=== PATIENT | male | born 1955 | race Caucasian/White ===

== ENCOUNTER 2022-01-04 20:16 | Emergency (ER) | payer MEDICARE, MEDICAID | END 2022-01-04 21:32 | disposition left against medical advice (07) | LOC: DL.ED 20:16 | DX: Z53.21 Procedure and treatment not carried out due to patient leaving prior to being seen by health care provider (principal) ==

== ENCOUNTER 2022-01-07 04:11 | Emergency (ER) | payer MEDICARE, MEDICAID ==
[2022-01-07] MEDS ORDERED: Lidocaine 2% Jelly 10 ML Urojet MUCMEM ONE (04:30)
[2022-01-07] MEDS ORDERED: Lidocaine 2% Jelly 10 ML Urojet ONE (04:33)
[2022-01-07] MEDS ORDERED: Sodium Chloride 0.9% 10 ML Syringe FLUSH PRN (05:39)
[2022-01-07] MEDS ORDERED: cefTRIAXone 1 GM in Sodium Chloride 0.9% 50 ML IV ONE (05:41)
[2022-01-07 06:33] LABS: ANION GAP 15.3 mEq/L (7-13); CHLORIDE,CL 100 mmol/L (98-107); SODIUM,NA 138 mmol/L (136-145)
[2022-01-07 06:39] VITALS: BP 137/85; PULSE 120
[2022-01-07 06:51] LABS: CORONAVIRUS COVID-19 NAA NEGATIVE (NEGATIVE)
[2022-01-07] MEDS ORDERED: Sodium Chloride 0.9% 500 ML IV ONE (06:56)
[2022-01-07] MEDS ORDERED: Acetaminophen 500 MG Tab PO ONE (06:56)
[2022-01-07] MEDS ORDERED: Albuterol 0.083% 2.5 MG/3 ML Neb Soln NEB ONE (07:10)
== END 2022-01-07 08:29 | disposition home or self-care (01) ==
LOC: DL.ED 04:11
DX: N39.0 Urinary tract infection, site not specified (principal); E78.00 Pure hypercholesterolemia, unspecified; I10 Essential (primary) hypertension; Z88.8 Allergy status to other drugs, medicaments and biological substances; Z79.82 Long term (current) use of aspirin; Z79.899 Other long term (current) drug therapy
CPT/HCPCS: 0240U; 36415; 51702; 71045; 80053; 81001; 83605; 83735; 83880; 84484; 85025; 85379; 85610; 87040; 87086; 87088; 87186; 93005; 94640; 96365; 99284; A9270; J0696; J3490; J7040; J7613-GY

== ENCOUNTER 2024-06-28 08:38 | Emergency (ER) | payer MEDICARE, MEDICAID ==
[2024-06-28 08:57] VITALS: BP 161/89; PULSE 124
[2024-06-28] MEDS: Iopamidol 612 MG/ML 100 ML Bottle IVPUSH ONE (09:06)
[2024-06-28] MEDS: Acetaminophen/HYDROcodone 325-10 MG Tab PO ONE (09:12)
[2024-06-28] MEDS: Sodium Chloride 0.9% 1,000 ML IV ONE (09:13)
[2024-06-28] MEDS: Albuterol/Ipratropium 3.0-0.5 MG/3 ML Neb Soln NEB ONE (09:16)
[2024-06-28] MEDS: Dexamethasone 4 MG/ML SDV IVPUSH ONE (09:16)
[2024-06-28 09:18] LABS: BASOPHILS PERCENT AUTO 0.4 % (0.0-1.0); EOSINOPHILS PERCENT AUTO 1.1 % (1.0-3.0); HEMATOCRIT 49.8 % (40.0-54.0); HEMOGLOBIN 16.1 g/dL (14.0-18.0); LYMPHOCYTES PERCENT AUTO 10.2 % (20.5-50.1); MEAN CORPUSCULAR HEMOGLOBIN 28.5 pg (27.0-34.0); MEAN CORPUSCULAR HGB CONC 32.3 g/dL (33.0-35.0); MEAN CORPUSCULAR VOLUME 88.3 fL (80-100); MONOCYTES PERCENT AUTO 7.3 % (2-8); PLATELET COUNT,PLT 193 10^3/uL (150-450); RED BLOOD CELL COUNT 5.64 10^6/uL (4.6-6.2); WHITE BLOOD CELL COUNT,WBC 8.2 10^3/uL (5.0-10.0)
[2024-06-28 09:37] LABS: B-TYPE NATRIURETIC PEPTIDE,BNP 46 pg/ml (0-100)
[2024-06-28 09:40] LABS: A/G RATIO 0.8; ALANINE AMINOTRANSFERASE,ALT 15 U/L (16-63); ALBUMIN 3.6 g/dL (3.4-5.0); ALKALINE PHOSPHATASE 64 U/L (46-116); ANION GAP 18.4 mEq/L (7-13); ASPARTATE AMNIOTRANSFERASE,AST 13 U/L (15-37); BILIRUBIN TOTAL 0.8 mg/dL (0.2-1.0); BLOOD UREA NITROGEN,BUN 8 mg/dL (7-18); BUN/CREATININE RATIO 9.6 (No establ ref range); CALCIUM 9.7 mg/dL (8.5-10.1); CARBON DIOXIDE,CO2 26 mmol/L (21-32); CHLORIDE,CL 97 mmol/L (98-107); CREATININE 0.83 mg/dL (0.70-1.30); EST CRCL DRUG DOSING (CG) 85.51 mL/min; GLUCOSE RANDOM 105 mg/dL (70-99); MAGNESIUM 1.9 mg/dL (1.8-2.4); POTASSIUM,K 4.4 mmol/L (3.5-5.1); PROTEIN TOTAL,TP 8.1 g/dL (6.4-8.2); SODIUM,NA 137 mmol/L (136-145)
[2024-06-28 09:41] LABS: ESTIMATED GFR 94 mL/min (>=60)
[2024-06-28 11:01] LABS: APPEARANCE,URINE CLEAR (CLEAR); BILIRUBIN,URINE SMALL (NEGATIVE); COLOR,URINE YELLOW (YELLOW); GLUCOSE,URINE NEGATIVE (NEGATIVE); KETONES,URINE >=160 (NEGATIVE); LEUKOCYTE ESTERASE,URINE NEGATIVE (NEGATIVE); NITRITE,URINE NEGATIVE (NEGATIVE); OCCULT BLOOD,URINE NEGATIVE (NEGATIVE); PH,URINE 5.5 (5.0-9.0); PROTEIN,URINE NEGATIVE (NEGATIVE); UROBILINOGEN,URINE 0.2 mg/dL (0.2-1.0)
[2024-06-28] MEDS: cefTRIAXone 1 GM Vial IM ONE (11:09)
[2024-06-28] MEDS: Azithromycin 250 MG Tab PO ONE (11:09)
== END 2024-06-28 12:22 ==
LOC: DL.ED 08:38
DX: J18.9 Pneumonia, unspecified organism (principal); J93.9 Pneumothorax, unspecified; J90 Pleural effusion, not elsewhere classified; I10 Essential (primary) hypertension; E78.00 Pure hypercholesterolemia, unspecified; F17.210 Nicotine dependence, cigarettes, uncomplicated; Z88.5 Allergy status to narcotic agent; Z88.8 Allergy status to other drugs, medicaments and biological substances; Z79.82 Long term (current) use of aspirin; Z79.899 Other long term (current) drug therapy
CPT/HCPCS: 36415; 71045; 71260; 80053; 81003; 83605; 83735; 83880; 84145; 84484; 85025; 87040; 93005; 96361; 96372; 96374; 99285; A9270; J0696; J1100; J7030; Q9967; 93010; J7620-GY

== ENCOUNTER 2024-08-10 19:36 | Inpatient (IN) | payer MEDICARE ==
[2024-08-10] MEDS: Albuterol/Ipratropium 3.0-0.5 MG/3 ML Neb Soln NEB ONE (19:57)
[2024-08-10] MEDS: Magnesium Sulfate/Water Premix 2 GM in Premix Bag 1 BAG IV ONE (19:57)
[2024-08-10] MEDS: Dexamethasone 4 MG/ML SDV IVPUSH ONE (19:57)
[2024-08-10 20:06] LABS: HEMATOCRIT 44.8 % (40.0-54.0); HEMOGLOBIN 14.8 g/dL (14.0-18.0); MEAN CORPUSCULAR HEMOGLOBIN 29.4 pg (27.0-34.0); MEAN CORPUSCULAR VOLUME 89.1 fL (80-100); PLATELET COUNT,PLT 202 10^3/uL (150-450); RED BLOOD CELL COUNT 5.03 10^6/uL (4.6-6.2); WHITE BLOOD CELL COUNT,WBC 12.3 10^3/uL (5.0-10.0)
[2024-08-10 20:07] LABS: BASOPHILS PERCENT AUTO 0.6 % (0.0-1.0); EOSINOPHILS PERCENT AUTO 0.3 % (1.0-3.0); LYMPHOCYTES PERCENT AUTO 8.4 % (20.5-50.1); MONOCYTES PERCENT AUTO 5.8 % (2-8); NEUTROPHILS PERCENT AUTO 84.9 % (42.2-75.2)
[2024-08-10 20:20] LABS: BAND PERCENT MAN 3 %; LYMPHOCYTES PERCENT MAN 8 % (20-50); MONOCYTES PERCENT MAN 4 % (2-8); SEG NEUTROPHILS PERCENT MAN 85 % (42-75)
[2024-08-10 20:22] LABS: C-REACTIVE PROTEIN < 0.50 ng/dL (<=0.50); MAGNESIUM 1.9 mg/dL (1.8-2.4)
[2024-08-10 21:07] LABS: ANION GAP 13.7 mEq/L (7-13); CALCIUM 9.3 mg/dL (8.5-10.1); CREATININE 0.85 mg/dL (0.70-1.30); EST CRCL DRUG DOSING (CG) 86.13 mL/min; POTASSIUM,K 3.7 mmol/L (3.5-5.1)
[2024-08-10] MEDS: cefTRIAXone 2 GM Vial IVPUSH ONE (21:16)
[2024-08-10] MEDS: Azithromycin 250 MG Tab PO ONE (21:16)
[2024-08-10] MEDS ORDERED: Metoclopramide 10 MG/2 ML SDV IV PRN (22:08)
[2024-08-10] MEDS ORDERED: Polyethylene Glycol 3350 Powder 17 GM Packet PO PRN (22:08)
[2024-08-10] MEDS ORDERED: Ondansetron 4 MG/2 ML SDV IVPUSH PRN (22:08)
[2024-08-10] MEDS ORDERED: Sodium Chloride 0.9% 10 ML Syringe FLUSH PRN (22:08)
[2024-08-10] MEDS ORDERED: Magnesium Hydroxide 400 MG/5 ML Susp 30 ML Cup PO PRN (22:08)
[2024-08-10] MEDS ORDERED: Sennosides/Docusate Sodium 50-8.6 MG Tab PO PRN (22:08)
[2024-08-10] MEDS ORDERED: Naloxone 2 MG/2 ML Syringe IVPUSH PRN (22:08)
[2024-08-10] MEDS ORDERED: Acetaminophen 325 MG Tab PO PRN (22:08)
[2024-08-10] MEDS: HYDROmorphone 0.5 MG/0.5 ML Syringe IVPUSH PRN (22:28)
[2024-08-10] MEDS ORDERED: Ziprasidone Mesylate 20 MG Vial IM PRN (22:37)
[2024-08-10] MEDS ORDERED: Morphine 2 MG/ML SYRINGE IVPUSH PRN (22:37)
[2024-08-10] MEDS ORDERED: fentaNYL 100 MCG/2 ML SDV IVPUSH PRN (22:47)
[2024-08-10] MEDS ORDERED: Glucagon,Human Recombinant 1 MG Vial IM PRN (23:13)
[2024-08-10] MEDS ORDERED: 50% Dextrose in Water 50 ML Syringe IVPUSH PRN (23:13)
[2024-08-11] MEDS: Ampicillin/Sulbactam Na 1.5 GM in Sodium Chloride 0.9% 100 ML IV SCH (00:37)
[2024-08-11] MEDS: methylPREDNISolone Sodium Succinate 40 MG/1 ML SDV IVPUSH SCH (00:37)
[2024-08-11] MEDS: Albuterol/Ipratropium 3.0-0.5 MG/3 ML Neb Soln NEB PRN (02:01)
[2024-08-11] MEDS: Albuterol/Ipratropium 3.0-0.5 MG/3 ML Neb Soln NEB SCH (04:59)
[2024-08-11 06:23] LABS: BASOPHILS PERCENT AUTO 0.5 % (0.0-1.0); HEMATOCRIT 45.7 % (40.0-54.0); HEMOGLOBIN 15.1 g/dL (14.0-18.0); LYMPHOCYTES PERCENT AUTO 4.8 % (20.5-50.1); MEAN CORPUSCULAR HEMOGLOBIN 29.5 pg (27.0-34.0); MEAN CORPUSCULAR VOLUME 89.4 fL (80-100); MONOCYTES PERCENT AUTO 0.5 % (2-8); NEUTROPHILS PERCENT AUTO 94.2 % (42.2-75.2); PLATELET COUNT,PLT 218 10^3/uL (150-450); RED BLOOD CELL COUNT 5.11 10^6/uL (4.6-6.2); WHITE BLOOD CELL COUNT,WBC 6.6 10^3/uL (5.0-10.0)
[2024-08-11] MEDS: Tiotropium Bromide 4 GM Inhalation Spray (2.5mcg/1 dose; 10 doses) INH SCH (06:30)
[2024-08-11] MEDS: Formoterol/Mometasone 100-5 MCG 8.8 GM Inhaler INH SCH (06:31)
[2024-08-11 06:43] LABS: INR 0.9 (0.9-1.2); PROTHROMBIN TIME 9.8 SEC (9.0-12.0); PTT,PARTIAL THROMBOPLSTIN TIME 27.8 SEC (22.0-34.0)
[2024-08-11 07:07] LABS: A/G RATIO 0.9; ALBUMIN 3.5 g/dL (3.4-5.0); ANION GAP 12.5 mEq/L (7-13); BILIRUBIN TOTAL 0.4 mg/dL (0.2-1.0); BUN/CREATININE RATIO 11.1 (No establ ref range); C-REACTIVE PROTEIN 2.47 ng/dL (<=0.50); CALCIUM 9.3 mg/dL (8.5-10.1); CREATININE 0.9 mg/dL (0.70-1.30); EST CRCL DRUG DOSING (CG) 81.34 mL/min; MAGNESIUM 2.4 mg/dL (1.8-2.4); POTASSIUM,K 4.5 mmol/L (3.5-5.1); PROTEIN TOTAL,TP 7.4 g/dL (6.4-8.2)
[2024-08-11] MEDS ORDERED: Enoxaparin 40 MG/0.4 ML Syringe SUBCUT SCH (09:00)
[2024-08-11] MEDS ORDERED: cefTRIAXone 2 GM Vial IVPUSH SCH (09:00)
[2024-08-11] MEDS: Insulin Lispro 100 Units/ML 3 ML Vial SUBCUT SCH (09:41)
[2024-08-11] MEDS: Finasteride 5 MG Tab PO SCH (09:44)
[2024-08-11] MEDS: guaiFENesin 600 MG Tab.ER PO SCH (09:44)
[2024-08-11] MEDS: Saccharomyces Boulardii (Probiotic) 250 MG Cap PO SCH (09:45)
[2024-08-11] MEDS: Azithromycin 500 MG in Sodium Chloride 0.9% 250 ML IV SCH (09:45)
[2024-08-11] MEDS: Sodium Chloride 0.9% 10 ML Syringe FLUSH SCH (09:45)
[2024-08-11] MEDS: Acetaminophen/HYDROcodone 325-5 MG Tab PO PRN (10:20)
[2024-08-11] MEDS: Melatonin 3 MG Tab PO PRN (21:29)
[2024-08-11] MEDS: Rosuvastatin 10 MG Tab PO SCH (21:29)
[2024-08-12 06:06] LABS: BASOPHILS PERCENT AUTO 0.3 % (0.0-1.0); HEMATOCRIT 47.1 % (40.0-54.0); HEMOGLOBIN 15.3 g/dL (14.0-18.0); LYMPHOCYTES PERCENT AUTO 4.8 % (20.5-50.1); MEAN CORPUSCULAR HEMOGLOBIN 29.2 pg (27.0-34.0); MEAN CORPUSCULAR HGB CONC 32.5 g/dL (33.0-35.0); MEAN CORPUSCULAR VOLUME 89.9 fL (80-100); MONOCYTES PERCENT AUTO 2.7 % (2-8); NEUTROPHILS PERCENT AUTO 92.2 % (42.2-75.2); PLATELET COUNT,PLT 255 10^3/uL (150-450); RED BLOOD CELL COUNT 5.24 10^6/uL (4.6-6.2); WHITE BLOOD CELL COUNT,WBC 12.4 10^3/uL (5.0-10.0)
[2024-08-12 06:37] LABS: A/G RATIO 0.9; ALBUMIN 3.5 g/dL (3.4-5.0); ANION GAP 13.4 mEq/L (7-13); BILIRUBIN TOTAL 0.4 mg/dL (0.2-1.0); BUN/CREATININE RATIO 18.2 (No establ ref range); C-REACTIVE PROTEIN 1.49 ng/dL (<=0.50); CALCIUM 9.6 mg/dL (8.5-10.1); CREATININE 0.99 mg/dL (0.70-1.30); EST CRCL DRUG DOSING (CG) 73.95 mL/min; MAGNESIUM 2.6 mg/dL (1.8-2.4); POTASSIUM,K 4.4 mmol/L (3.5-5.1); PROTEIN TOTAL,TP 7.3 g/dL (6.4-8.2)
[2024-08-12] MEDS: Tamsulosin 0.4 MG Cap.ER PO SCH (08:29)
[2024-08-12] MEDS ORDERED: Enoxaparin 40 MG/0.4 ML Syringe SUBCUT SCH (09:00)
[2024-08-12] MEDS: Cyclobenzaprine 10 MG Tab PO PRN (09:31)
[2024-08-12] MEDS: HYDROmorphone 1 MG/ML Syringe IVPUSH ONE (10:17)
[2024-08-12] MEDS: Lidocaine 1% 5 ML VIAL INJECT ONE (10:55)
[2024-08-12 11:23] VITALS: BP 128/67; PULSE 77
[2024-08-13] MEDS ORDERED: Enoxaparin 40 MG/0.4 ML Syringe SUBCUT SCH (09:00)
[2024-08-13 11:46] LABS: BASO'S 0 /cu mm; EO'S 0 /cu mm; LYMPH'S 699 /cu mm; MONO'S 272 /cu mm; OTHER 583 /cu mm; PMN'S 389 /cu mm
== END 2024-08-12 15:30 | disposition home or self-care (01) | DRG 193 ==
LOC: DL.ED 19:36 → DL.MS 21:03
PROVIDERS: ADMIT Internal Medicine; ATTEND Internal Medicine
PROC: 0W993ZZ Drainage of Right Pleural Cavity, Percutaneous Approach (ICD-10-PCS; principal; 2024-08-12)
DX: J18.9 Pneumonia, unspecified organism (principal); J96.01 Acute respiratory failure with hypoxia; J44.0 Chronic obstructive pulmonary disease with (acute) lower respiratory infection; J44.1 Chronic obstructive pulmonary disease with (acute) exacerbation; J90 Pleural effusion, not elsewhere classified; Z16.29 Resistance to other single specified antibiotic; Z66 Do not resuscitate; E78.00 Pure hypercholesterolemia, unspecified; I10 Essential (primary) hypertension; N40.0 Benign prostatic hyperplasia without lower urinary tract symptoms; G43.909 Migraine, unspecified, not intractable, without status migrainosus; F41.9 Anxiety disorder, unspecified; I25.10 Atherosclerotic heart disease of native coronary artery without angina pectoris; K21.9 Gastro-esophageal reflux disease without esophagitis; M19.90 Unspecified osteoarthritis, unspecified site; F32.A Depression, unspecified; F17.210 Nicotine dependence, cigarettes, uncomplicated; D72.0 Genetic anomalies of leukocytes; R73.9 Hyperglycemia, unspecified; Z99.81 Dependence on supplemental oxygen; Z88.5 Allergy status to narcotic agent; Z88.8 Allergy status to other drugs, medicaments and biological substances; Z79.82 Long term (current) use of aspirin; Z79.899 Other long term (current) drug therapy; Z87.19 Personal history of other diseases of the digestive system; Z85.46 Personal history of malignant neoplasm of prostate; Z86.16 Personal history of COVID-19
CPT/HCPCS: 36415; 71045; 80048; 82550; 83735; 85025; 86140; 94640; 99285; J1100; J3475; 80053; 82947; 85610; 85730; 87015; 87070; 87077; 87116; 87186; 87205; 87206; 87428-QW; 88112; 88305; 89051; 93306; 94664; 96374; 96375; 99223; 99232; 99239; A9270-GY; J0295; J0456; J0696; J1171; J2919; J3490; J7050; J7620-GY

== ENCOUNTER 2024-10-23 10:17 | Emergency (ER) | payer MEDICARE, OTHER ==
[2024-10-23 10:43] LABS: HEMATOCRIT 47.9 % (40.0-54.0); HEMOGLOBIN 15.5 g/dL (14.0-18.0); MEAN CORPUSCULAR HEMOGLOBIN 29.2 pg (27.0-34.0); MEAN CORPUSCULAR HGB CONC 32.4 g/dL (33.0-35.0); MEAN CORPUSCULAR VOLUME 90.4 fL (80-100); PLATELET COUNT,PLT 262 10^3/uL (150-450); WHITE BLOOD CELL COUNT,WBC 13.1 10^3/uL (5.0-10.0)
[2024-10-23] MEDS: Lactated Ringers 1,000 ML IV ONE (10:50)
[2024-10-23 11:07] LABS: A/G RATIO 0.8; ALBUMIN 3.5 g/dL (3.4-5.0); ANION GAP 12.1 mEq/L (7-13); BILIRUBIN TOTAL 0.6 mg/dL (0.2-1.0); BUN/CREATININE RATIO 12.5 (No establ ref range); C-REACTIVE PROTEIN 1.86 ng/dL (<=0.50); CALCIUM 9.6 mg/dL (8.5-10.1); CREATININE 0.96 mg/dL (0.70-1.30); EST CRCL DRUG DOSING (CG) 76.26 mL/min; MAGNESIUM 1.8 mg/dL (1.8-2.4); POTASSIUM,K 4.1 mmol/L (3.5-5.1); PROTEIN TOTAL,TP 8.1 g/dL (6.4-8.2)
[2024-10-23 11:15] LABS: LACTIC ACID 2.9 mmol/L (0.4-2.0)
[2024-10-23] MEDS: Iopamidol 755 Mg/ML 100 ML Bottle IVPUSH ONE (11:16)
[2024-10-23 11:21] LABS: LYMPHOCYTES PERCENT MAN 8 % (20-50); MONOCYTES PERCENT MAN 5 % (2-8); SEG NEUTROPHILS PERCENT MAN 87 % (42-75)
[2024-10-23] MEDS: Ketorolac 30 MG/ML SDV IVPUSH ONE (13:16)
[2024-10-23 14:02] VITALS: BP 134/72; PULSE 100
== END 2024-10-23 13:55 | disposition home or self-care (01) ==
LOC: DL.ED 10:17
DX: J18.9 Pneumonia, unspecified organism (principal); I10 Essential (primary) hypertension; E78.00 Pure hypercholesterolemia, unspecified; J44.9 Chronic obstructive pulmonary disease, unspecified; Z86.16 Personal history of COVID-19; Z88.5 Allergy status to narcotic agent; Z88.8 Allergy status to other drugs, medicaments and biological substances; Z79.51 Long term (current) use of inhaled steroids; Z79.899 Other long term (current) drug therapy
CPT/HCPCS: 36415; 71275; 80053; 83605; 83735; 85025; 86140; 87040; 87428-QW; 93005; 93010; 96361; 96374; 99284; 99285-25; J1885; J7120; Q9967

== ENCOUNTER 2024-11-02 14:38 | Inpatient (IN) | payer MEDICARE ==
[2024-11-02] MEDS ORDERED: Sodium Chloride 0.9% 10 ML Syringe FLUSH PRN (14:39)
[2024-11-02 14:59] LABS: O2 DELIVERY DEVICE SIMPLE MASK
[2024-11-02 15:00] LABS: BASOPHILS PERCENT AUTO 0.2 % (0.0-1.0); EOSINOPHILS PERCENT AUTO 1.3 % (1.0-3.0); HEMOGLOBIN 13.7 g/dL (14.0-18.0); LYMPHOCYTES PERCENT AUTO 4.9 % (20.5-50.1); MEAN CORPUSCULAR HEMOGLOBIN 29.1 pg (27.0-34.0); MEAN CORPUSCULAR HGB CONC 31.9 g/dL (33.0-35.0); MEAN CORPUSCULAR VOLUME 91.3 fL (80-100); MONOCYTES PERCENT AUTO 5.6 % (2-8); PLATELET COUNT,PLT 194 10^3/uL (150-450); RED BLOOD CELL COUNT 4.71 10^6/uL (4.6-6.2)
[2024-11-02] MEDS: Naloxone 2 MG/2 ML Syringe IVPUSH PRN ×2 (15:13→16:35)
[2024-11-02 15:25] LABS: O2 SATURATION VENOUS 89.9 % (60-80); PCO2 VENOUS 44 mmHg (41-51); PH,VENOUS 7.35 (7.31-7.41); PO2 VENOUS 66 mmHg (35-42)
[2024-11-02 15:26] LABS: ALANINE AMINOTRANSFERASE,ALT 13 U/L (16-63); ALBUMIN 3.3 g/dL (3.4-5.0); ALKALINE PHOSPHATASE 71 U/L (46-116); ANION GAP 16.2 mEq/L (7-13); ASPARTATE AMNIOTRANSFERASE,AST 11 U/L (15-37); BASE EXCESS VENOUS -1.5 mmol/l ((-2)-(+3)); BICARBONATE,VENOUS 24 mmol/l (19-25); BILIRUBIN TOTAL 0.3 mg/dL (0.2-1.0); BLOOD UREA NITROGEN,BUN 13 mg/dL (7-18); BUN/CREATININE RATIO 20.3 (No establ ref range); C-REACTIVE PROTEIN 1.13 ng/dL (<=0.50); CARBON DIOXIDE,CO2 25 mmol/L (21-32); CHLORIDE,CL 101 mmol/L (98-107); CREATININE 0.64 mg/dL (0.70-1.30); GLUCOSE RANDOM 88 mg/dL (70-99); MAGNESIUM 1.9 mg/dL (1.8-2.4); POTASSIUM,K 4.2 mmol/L (3.5-5.1); PROTEIN TOTAL,TP 7.2 g/dL (6.4-8.2); SODIUM,NA 138 mmol/L (136-145)
[2024-11-02 15:27] LABS: INR 0.9 (0.9-1.2); PROTHROMBIN TIME 9.5 SEC (9.0-12.0)
[2024-11-02 15:28] LABS: B-TYPE NATRIURETIC PEPTIDE,BNP 56 pg/ml (0-100)
[2024-11-02 15:29] LABS: A/G RATIO 0.85; ESTIMATED GFR 102 mL/min (>=60); ETHANOL BLOOD MEDICAL < 3 mg/dL (0)
[2024-11-02] MEDS: Lactated Ringers 1,000 ML IV SCH (15:30)
[2024-11-02 16:45] LABS: AMPHETAMINES,URINE NEGATIVE (NEGATIVE); BARBITURATES,URINE NEGATIVE (NEGATIVE); BENZODIAZEPINE,URINE NEGATIVE (NEGATIVE); MDMA (ECSTASY), URINE NEGATIVE (NEGATIVE); METHADONE,URINE NEGATIVE (NEGATIVE); METHAMPHETAMINES,URINE NEGATIVE (NEGATIVE); OPIATES,URINE NEGATIVE (NEGATIVE); OXYCODONE,URINE POSITIVE (NEGATIVE); PHENCYCLIDINE,URINE NEGATIVE (NEGATIVE); TCA,URINE NEGATIVE (NEGATIVE)
[2024-11-02 17:13] LABS: APPEARANCE,URINE CLEAR (CLEAR); BILIRUBIN,URINE NEGATIVE (NEGATIVE); COLOR,URINE YELLOW (YELLOW); GLUCOSE,URINE NEGATIVE (NEGATIVE); KETONES,URINE NEGATIVE (NEGATIVE); LEUKOCYTE ESTERASE,URINE NEGATIVE (NEGATIVE); NITRITE,URINE NEGATIVE (NEGATIVE); OCCULT BLOOD,URINE TRACE-INTACT (NEGATIVE); PH,URINE 5.5 (5.0-9.0); PROTEIN,URINE NEGATIVE (NEGATIVE); UROBILINOGEN,URINE 0.2 mg/dL (0.2-1.0)
[2024-11-02 17:30] LABS: BACTERIA,URINE FEW /HPF (0-FEW/HPF); EPITHELIAL CELLS,URINE RARE /HPF (NOT SEEN); MUCUS,URINE FEW /LPF (NOT SEEN); WBC,URINE 0-5 /HPF (0-5/HPF)
[2024-11-02] MEDS: Iopamidol 755 Mg/ML 100 ML Bottle IVPUSH ONE (18:36)
[2024-11-02] MEDS: Iopamidol 612 MG/ML 100 ML Bottle IVPUSH ONE (18:37)
[2024-11-02] MEDS: Albuterol 0.083% 2.5 MG/3 ML Neb Soln NEB ONE (18:39)
[2024-11-02] MEDS ORDERED: Lactated Ringers 1,000 ML IV SCH (18:45)
[2024-11-02] MEDS: Enoxaparin 100 MG/1 ML Syringe SUBCUT ONE (19:02)
[2024-11-02] MEDS ORDERED: guaiFENesin/Dextromethorphan 100-10 MG/5 ML Soln 5 ML Cup PO PRN (20:25)
[2024-11-02] MEDS ORDERED: hydrALAZINE 20 MG/ML SDV IVPUSH PRN (20:29)
[2024-11-02] MEDS ORDERED: Metoprolol Tartrate 5 MG/5 ML SDV IVPUSH PRN (20:29)
[2024-11-02] MEDS ORDERED: Ondansetron 4 MG/2 ML SDV IVPUSH PRN (20:30)
[2024-11-02] MEDS ORDERED: Sennosides/Docusate Sodium 50-8.6 MG Tab PO PRN (20:30)
[2024-11-02] MEDS ORDERED: Polyethylene Glycol 3350 Powder 17 GM Packet PO PRN (20:30)
[2024-11-02] MEDS ORDERED: Acetaminophen 325 MG Tab PO PRN (20:30)
[2024-11-02] MEDS ORDERED: Magnesium Hydroxide 400 MG/5 ML Susp 30 ML Cup PO PRN (20:30)
[2024-11-02] MEDS ORDERED: HYDROmorphone 0.5 MG/0.5 ML Syringe IVPUSH PRN (20:30)
[2024-11-02] MEDS ORDERED: 50% Dextrose in Water 50 ML Syringe IVPUSH PRN (20:33)
[2024-11-02] MEDS ORDERED: Glucagon,Human Recombinant 1 MG Vial IM PRN (20:33)
[2024-11-02] MEDS ORDERED: Cefepime 1 GM Vial IVPUSH SCH (21:00)
[2024-11-02] MEDS: Cefepime 1 GM Vial IVPUSH SCH (21:14)
[2024-11-02] MEDS: Saccharomyces Boulardii (Probiotic) 250 MG Cap PO SCH (21:15)
[2024-11-02] MEDS: guaiFENesin 600 MG Tab.ER PO SCH (21:15)
[2024-11-02] MEDS: VANCOmycin 2 GM in Sodium Chloride 0.9% 500 ML IV ONE (21:15)
[2024-11-02] MEDS: Benzonatate 100 MG Cap PO PRN (21:15)
[2024-11-02] MEDS: Midodrine 5 MG Tab PO ONE (21:16)
[2024-11-02 21:47] LABS: APPEARANCE,URINE SLIGHTLY CLOUDY (CLEAR); BILIRUBIN,URINE NEGATIVE (NEGATIVE); COLOR,URINE YELLOW (YELLOW); GLUCOSE,URINE NEGATIVE (NEGATIVE); KETONES,URINE NEGATIVE (NEGATIVE); LEUKOCYTE ESTERASE,URINE NEGATIVE (NEGATIVE); NITRITE,URINE NEGATIVE (NEGATIVE); OCCULT BLOOD,URINE LARGE (NEGATIVE); PH,URINE 5.5 (5.0-9.0); PROTEIN,URINE TRACE (NEGATIVE); UROBILINOGEN,URINE 0.2 mg/dL (0.2-1.0)
[2024-11-02 21:52] LABS: BACTERIA,URINE FEW /HPF (0-FEW/HPF); EPITHELIAL CELLS,URINE RARE /HPF (NOT SEEN); RBC,URINE >100 /HPF (0-5); WBC,URINE 0-5 /HPF (0-5/HPF)
[2024-11-02] MEDS ORDERED: VANCOmycin 2 GM in Sodium Chloride 0.9% 500 ML IV ONE (22:00)
[2024-11-02] MEDS: Hydrocortisone Sodium Succinate 100 MG/2 ML SDV IVPUSH SCH (23:50)
[2024-11-03] MEDS: diphenhydrAMINE 50 MG/ML SDV IVPUSH ONE (00:13)
[2024-11-03] MEDS: fentaNYL 100 MCG/2 ML SDV IVPUSH PRN (00:14)
[2024-11-03] MEDS: Famotidine 20 MG/2 ML SDV IVPUSH ONE (00:15)
[2024-11-03] MEDS: Albuterol/Ipratropium 3.0-0.5 MG/3 ML Neb Soln NEB PRN (03:51)
[2024-11-03] MEDS ORDERED: Midodrine 5 MG Tab PO PRN (06:00)
[2024-11-03] MEDS: Formoterol/Mometasone 200-5 MCG 8.8 GM Inhaler INH SCH (06:30)
[2024-11-03 06:36] LABS: BASOPHILS PERCENT AUTO 0.2 % (0.0-1.0); EOSINOPHILS PERCENT AUTO 0.2 % (1.0-3.0); HEMATOCRIT 41.6 % (40.0-54.0); HEMOGLOBIN 13.3 g/dL (14.0-18.0); LYMPHOCYTES PERCENT AUTO 6.9 % (20.5-50.1); MEAN CORPUSCULAR HEMOGLOBIN 29.2 pg (27.0-34.0); MEAN CORPUSCULAR VOLUME 91.2 fL (80-100); MONOCYTES PERCENT AUTO 2.4 % (2-8); NEUTROPHILS PERCENT AUTO 90.3 % (42.2-75.2); PLATELET COUNT,PLT 186 10^3/uL (150-450); RED BLOOD CELL COUNT 4.56 10^6/uL (4.6-6.2); WHITE BLOOD CELL COUNT,WBC 5.4 10^3/uL (5.0-10.0)
[2024-11-03 07:05] LABS: A/G RATIO 0.94; ANION GAP 13.3 mEq/L (7-13); BILIRUBIN TOTAL 0.4 mg/dL (0.2-1.0); BUN/CREATININE RATIO 12.9 (No establ ref range); C-REACTIVE PROTEIN 4.26 ng/dL (<=0.50); CALCIUM 8.9 mg/dL (8.5-10.1); CREATININE 0.62 mg/dL (0.70-1.30); EST CRCL DRUG DOSING (CG) 118.08 mL/min; MAGNESIUM 2.1 mg/dL (1.8-2.4); POTASSIUM,K 4.3 mmol/L (3.5-5.1); PROTEIN TOTAL,TP 6.2 g/dL (6.4-8.2)
[2024-11-03] MEDS: Insulin Lispro 100 Units/ML 3 ML Vial SUBCUT SCH (08:13)
[2024-11-03] MEDS: Cefepime 2 GM Vial IVPUSH SCH (09:20)
[2024-11-03] MEDS: Finasteride 5 MG Tab PO SCH (09:38)
[2024-11-03] MEDS: guaiFENesin 600 MG Tab.ER PO SCH (09:39)
[2024-11-03] MEDS: VANCOmycin 1.5 GM/300 ML 1.5 GM in Premix Bag 1 BAG IV SCH (09:48)
[2024-11-03] MEDS: Enoxaparin 100 MG/1 ML Syringe SUBCUT ONE (10:01)
[2024-11-03] MEDS: oxyCODONE 5 MG Tab PO PRN ×2 (13:53→18:21)
[2024-11-03] MEDS: Tamsulosin 0.4 MG Cap.ER PO SCH (17:26)
[2024-11-03] MEDS: Rosuvastatin 10 MG Tab PO SCH (21:23)
[2024-11-03] MEDS: Zolpidem 5 MG Tab PO PRN (21:25)
[2024-11-04 06:33] LABS: BASOPHILS PERCENT AUTO 0.2 % (0.0-1.0); HEMATOCRIT 41.6 % (40.0-54.0); HEMOGLOBIN 13.4 g/dL (14.0-18.0); LYMPHOCYTES PERCENT AUTO 7.2 % (20.5-50.1); MEAN CORPUSCULAR HEMOGLOBIN 28.9 pg (27.0-34.0); MEAN CORPUSCULAR HGB CONC 32.2 g/dL (33.0-35.0); MEAN CORPUSCULAR VOLUME 89.8 fL (80-100); MONOCYTES PERCENT AUTO 4.6 % (2-8); PLATELET COUNT,PLT 214 10^3/uL (150-450); RED BLOOD CELL COUNT 4.63 10^6/uL (4.6-6.2); WHITE BLOOD CELL COUNT,WBC 6.6 10^3/uL (5.0-10.0)
[2024-11-04 07:03] LABS: A/G RATIO 0.75; ANION GAP 11.7 mEq/L (7-13); BILIRUBIN TOTAL 0.3 mg/dL (0.2-1.0); BUN/CREATININE RATIO 24.2 (No establ ref range); C-REACTIVE PROTEIN 1.83 ng/dL (<=0.50); CREATININE 0.62 mg/dL (0.70-1.30); EST CRCL DRUG DOSING (CG) 118.08 mL/min; MAGNESIUM 2.3 mg/dL (1.8-2.4); POTASSIUM,K 3.7 mmol/L (3.5-5.1); VANCOMYCIN RANDOM 13.7 ug/mL (No Normal Range)
[2024-11-04] MEDS: Magnesium Sulf/Wat 2 GM/50 mL 2 GM in Premix Bag 1 BAG IV ONE (08:10)
[2024-11-04] MEDS: Benzonatate 100 MG Cap PO SCH ×2 (08:10→08:13)
[2024-11-04] MEDS: Gabapentin 100 MG Cap PO SCH (08:11)
[2024-11-04] MEDS: fentaNYL 25 MCG/HR Transdermal Patch TRDERM ONE (08:12)
[2024-11-04] MEDS: Enoxaparin 100 MG/1 ML Syringe SUBCUT ONE (12:01)
[2024-11-04] MEDS: methylPREDNISolone Sodium Succinate 125 MG/2 ML SDV IVPUSH SCH (12:12)
[2024-11-04] MEDS: Aminophylline 500 MG in Sodium Chloride 0.9% 500 ML IV ONE (12:18)
[2024-11-04] MEDS: Lidocaine 1% 30 ML SDV INJECT ONE (13:13)
[2024-11-04] MEDS: Aminophylline 500 MG in Sodium Chloride 0.9% 500 ML IV SCH (13:29)
[2024-11-04] MEDS: Lidocaine 1% 30 ML SDV ONE (13:54)
[2024-11-04] MEDS: fentaNYL 100 MCG/2 ML SDV ONE (13:54)
[2024-11-04] MEDS: fentaNYL 100 MCG/2 ML SDV IVPUSH ONE (13:57)
[2024-11-04] MEDS: Magnesium Oxide 400 MG Tab PO SCH (17:38)
[2024-11-04] MEDS ORDERED: Flumazenil 0.1 MG/ML 5 ML MDV IVPUSH PRN (19:28)
[2024-11-04] MEDS: LORazepam 2 MG/ML SDV IVPUSH ONE (21:04)
[2024-11-04] MEDS: Apixaban 5 MG Tab PO SCH (21:14)
[2024-11-04] MEDS: oxyCODONE 5 MG Tab PO PRN (21:16)
[2024-11-05 06:18] LABS: HEMATOCRIT 39.7 % (40.0-54.0); HEMOGLOBIN 12.9 g/dL (14.0-18.0); LYMPHOCYTES PERCENT AUTO 4.9 % (20.5-50.1); MEAN CORPUSCULAR HGB CONC 32.5 g/dL (33.0-35.0); MEAN CORPUSCULAR VOLUME 89.2 fL (80-100); MONOCYTES PERCENT AUTO 5.5 % (2-8); NEUTROPHILS PERCENT AUTO 89.6 % (42.2-75.2); PLATELET COUNT,PLT 239 10^3/uL (150-450); RED BLOOD CELL COUNT 4.45 10^6/uL (4.6-6.2); WHITE BLOOD CELL COUNT,WBC 8.8 10^3/uL (5.0-10.0)
[2024-11-05 06:41] LABS: ALANINE AMINOTRANSFERASE,ALT 11 U/L (16-63); ALKALINE PHOSPHATASE 51 U/L (46-116); ANION GAP 9.4 mEq/L (7-13); ASPARTATE AMNIOTRANSFERASE,AST 8 U/L (15-37); BILIRUBIN TOTAL 0.2 mg/dL (0.2-1.0); BLOOD UREA NITROGEN,BUN 16 mg/dL (7-18); BUN/CREATININE RATIO 22.2 (No establ ref range); CALCIUM 8.8 mg/dL (8.5-10.1); CARBON DIOXIDE,CO2 29 mmol/L (21-32); CHLORIDE,CL 105 mmol/L (98-107); CREATININE 0.72 mg/dL (0.70-1.30); EST CRCL DRUG DOSING (CG) 101.68 mL/min; GLUCOSE RANDOM 143 mg/dL (70-99); MAGNESIUM 2.4 mg/dL (1.8-2.4); POTASSIUM,K 3.4 mmol/L (3.5-5.1); PROTEIN TOTAL,TP 6.6 g/dL (6.4-8.2); SODIUM,NA 140 mmol/L (136-145)
[2024-11-05 06:45] LABS: A/G RATIO 0.83; C-REACTIVE PROTEIN < 0.50 ng/dL (<=0.50); ESTIMATED GFR 98 mL/min (>=60)
[2024-11-05] MEDS: VANCOmycin 1.25 GM in Sodium Chloride 0.9% 250 ML IV SCH (10:52)
[2024-11-05] MEDS: Potassium Chloride 10 MEQ Tab.ER PO ONE (10:52)
[2024-11-05 10:57] VITALS: BP 120/58; PULSE 70
== END 2024-11-05 09:15 | disposition home or self-care (01) | DRG 871 ==
LOC: DL.ED 14:38 → DL.MS 18:45
PROVIDERS: ADMIT Internal Medicine; ATTEND Internal Medicine
PROC: 4A033R1 Measurement of Arterial Saturation, Peripheral, Percutaneous Approach (ICD-10-PCS; 2024-11-02)
PROC: 3E03329 Introduction of Other Anti-infective into Peripheral Vein, Percutaneous Approach (ICD-10-PCS; 2024-11-02)
PROC: 0W993ZZ Drainage of Right Pleural Cavity, Percutaneous Approach (ICD-10-PCS; principal; 2024-11-04)
DX: A41.9 Sepsis, unspecified organism (principal); I26.99 Other pulmonary embolism without acute cor pulmonale; J96.21 Acute and chronic respiratory failure with hypoxia; J44.0 Chronic obstructive pulmonary disease with (acute) lower respiratory infection; J93.9 Pneumothorax, unspecified; J44.1 Chronic obstructive pulmonary disease with (acute) exacerbation; J91.8 Pleural effusion in other conditions classified elsewhere; I10 Essential (primary) hypertension; E78.00 Pure hypercholesterolemia, unspecified; I25.10 Atherosclerotic heart disease of native coronary artery without angina pectoris; F17.210 Nicotine dependence, cigarettes, uncomplicated; K21.9 Gastro-esophageal reflux disease without esophagitis; N40.0 Benign prostatic hyperplasia without lower urinary tract symptoms; F41.9 Anxiety disorder, unspecified; F32.A Depression, unspecified; G89.4 Chronic pain syndrome; J44.9 Chronic obstructive pulmonary disease, unspecified; G43.909 Migraine, unspecified, not intractable, without status migrainosus; E88.09 Other disorders of plasma-protein metabolism, not elsewhere classified; F15.10 Other stimulant abuse, uncomplicated; Z91.199 Patient's noncompliance with other medical treatment and regimen due to unspecified reason; Z86.16 Personal history of COVID-19; Z85.46 Personal history of malignant neoplasm of prostate; Z99.81 Dependence on supplemental oxygen; Z86.19 Personal history of other infectious and parasitic diseases; Z88.5 Allergy status to narcotic agent; Z88.8 Allergy status to other drugs, medicaments and biological substances; Z79.02 Long term (current) use of antithrombotics/antiplatelets; Z79.01 Long term (current) use of anticoagulants; Z79.899 Other long term (current) drug therapy
CPT/HCPCS: 36415; 70450; 71275; 80053; 80305; 80307; 81001; 82375; 82803; 82947; 83605; 83735; 83880; 84484; 85025; 85610; 86140; 87428; 93005; 93010; 96374; 99284; 99285; C1758; J2310 ×2; J7120; Q9967; 71045; 80202; 94640; 99223; 99233; 99238; A9270-GY; J0280; J0692; J1200; J1650; J1720; J2060; J2919; J3010; J3372; J3475; J3490; J7040; J7613-GY; J7620-GY

== ENCOUNTER 2024-12-06 02:00 | Inpatient (IN) | payer MEDICARE ==
[2024-12-06 02:44] LABS: BASOPHILS PERCENT AUTO 0.5 % (0.0-1.0); EOSINOPHILS PERCENT AUTO 2.4 % (1.0-3.0); HEMATOCRIT 44.5 % (40.0-54.0); HEMOGLOBIN 14.6 g/dL (14.0-18.0); LYMPHOCYTES PERCENT AUTO 11.7 % (20.5-50.1); MEAN CORPUSCULAR HGB CONC 32.8 g/dL (33.0-35.0); MEAN CORPUSCULAR VOLUME 88.5 fL (80-100); MONOCYTES PERCENT AUTO 6.8 % (2-8); NEUTROPHILS PERCENT AUTO 78.6 % (42.2-75.2); PLATELET COUNT,PLT 263 10^3/uL (150-450); RED BLOOD CELL COUNT 5.03 10^6/uL (4.6-6.2); WHITE BLOOD CELL COUNT,WBC 7.6 10^3/uL (5.0-10.0)
[2024-12-06 03:08] LABS: LACTIC ACID 1.1 mmol/L (0.4-2.0)
[2024-12-06 03:15] LABS: ALBUMIN 3.3 g/dL (3.4-5.0); ANION GAP 8.3 mEq/L (7-13); BILIRUBIN TOTAL 0.4 mg/dL (0.2-1.0); BUN/CREATININE RATIO 7.2 (No establ ref range); CALCIUM 9.8 mg/dL (8.5-10.1); CREATININE 0.97 mg/dL (0.70-1.30); EST CRCL DRUG DOSING (CG) 75.47 mL/min; MAGNESIUM 1.6 mg/dL (1.8-2.4); POTASSIUM,K 4.3 mmol/L (3.5-5.1); PROTEIN TOTAL,TP 7.2 g/dL (6.4-8.2)
[2024-12-06 03:19] LABS: A/G RATIO 0.85
[2024-12-06] MEDS: Levofloxacin/Dextrose 5%-Water 500 MG in Premix Bag 1 BAG IV ONE (03:30)
[2024-12-06] MEDS ORDERED: Naloxone 2 MG/2 ML Syringe IVPUSH PRN (10:36)
[2024-12-06] MEDS ORDERED: Gabapentin 100 MG Cap PO PRN ×2 (10:36→10:43)
[2024-12-06] MEDS ORDERED: 50% Dextrose in Water 50 ML Syringe IVPUSH PRN (10:42)
[2024-12-06] MEDS ORDERED: Glucagon,Human Recombinant 1 MG Vial IM PRN (10:42)
[2024-12-06] MEDS ORDERED: Metoprolol Tartrate 5 MG/5 ML SDV IVPUSH PRN (10:45)
[2024-12-06] MEDS ORDERED: hydrALAZINE 20 MG/ML SDV IVPUSH PRN (10:45)
[2024-12-06] MEDS ORDERED: Acetaminophen 325 MG Tab PO PRN (11:12)
[2024-12-06] MEDS ORDERED: Morphine 2 MG/ML SYRINGE IVPUSH PRN (11:12)
[2024-12-06] MEDS ORDERED: Sodium Chloride 0.9% 10 ML Syringe FLUSH PRN (11:12)
[2024-12-06] MEDS ORDERED: Magnesium Hydroxide 400 MG/5 ML Susp 30 ML Cup PO PRN (11:12)
[2024-12-06] MEDS ORDERED: Ondansetron 4 MG/2 ML SDV IVPUSH PRN (11:12)
[2024-12-06] MEDS ORDERED: Melatonin 3 MG Tab PO PRN (11:12)
[2024-12-06] MEDS ORDERED: Sennosides/Docusate Sodium 50-8.6 MG Tab PO PRN (11:12)
[2024-12-06] MEDS ORDERED: Polyethylene Glycol 3350 Powder 17 GM Packet PO PRN (11:12)
[2024-12-06] MEDS: Magnesium Oxide 400 MG Tab PO SCH (11:24)
[2024-12-06] MEDS: Metoprolol Tartrate 50 MG Tab PO ONE (11:24)
[2024-12-06] MEDS: methylPREDNISolone Sodium Succinate 125 MG/2 ML SDV IVPUSH ONE (11:24)
[2024-12-06] MEDS: Azithromycin 500 MG in Sodium Chloride 0.9% 250 ML IV ONE (11:25)
[2024-12-06] MEDS: Magnesium Sulf/Wat 2 GM/50 mL 2 GM in Premix Bag 1 BAG IV ONE (11:25)
[2024-12-06] MEDS ORDERED: fentaNYL 100 MCG/2 ML SDV IVPUSH PRN (11:32)
[2024-12-06] MEDS ORDERED: Aminophylline 500 MG in Sodium Chloride 0.9% 500 ML IV SCH ×2 (13:00→16:00)
[2024-12-06] MEDS: Albuterol/Ipratropium 3.0-0.5 MG/3 ML Neb Soln NEB PRN (13:13)
[2024-12-06] MEDS: Insulin Lispro 100 Units/ML 3 ML Vial SUBCUT SCH (14:26)
[2024-12-06] MEDS: Morphine 2 MG/ML SYRINGE IVPUSH ONE (15:31)
[2024-12-06] MEDS: oxyCODONE 5 MG Tab PO PRN ×2 (15:51→21:50)
[2024-12-06] MEDS: Pantoprazole 40 MG Tab.CR PO SCH (15:53)
[2024-12-06] MEDS: Dexamethasone 4 MG/ML SDV IVPUSH SCH (17:25)
[2024-12-06] MEDS ORDERED: Albuterol/Ipratropium 3.0-0.5 MG/3 ML Neb Soln NEB SCH (18:00)
[2024-12-06] MEDS: Formoterol/Mometasone 200-5 MCG 8.8 GM Inhaler INH SCH (21:44)
[2024-12-06] MEDS: Melatonin 3 MG Tab PO PRN (21:50)
[2024-12-06] MEDS: guaiFENesin 600 MG Tab.ER PO SCH (21:50)
[2024-12-06] MEDS: Saccharomyces Boulardii (Probiotic) 250 MG Cap PO SCH (21:50)
[2024-12-06] MEDS: Metoprolol Tartrate 50 MG Tab PO SCH (21:51)
[2024-12-06] MEDS: Sodium Chloride 0.9% 10 ML Syringe FLUSH SCH (21:51)
[2024-12-07 06:40] LABS: BASOPHILS PERCENT AUTO 0.3 % (0.0-1.0); HEMATOCRIT 41.1 % (40.0-54.0); HEMOGLOBIN 13.4 g/dL (14.0-18.0); LYMPHOCYTES PERCENT AUTO 4.8 % (20.5-50.1); MEAN CORPUSCULAR HEMOGLOBIN 28.5 pg (27.0-34.0); MEAN CORPUSCULAR HGB CONC 32.6 g/dL (33.0-35.0); MEAN CORPUSCULAR VOLUME 87.4 fL (80-100); MONOCYTES PERCENT AUTO 4.7 % (2-8); NEUTROPHILS PERCENT AUTO 90.2 % (42.2-75.2); PLATELET COUNT,PLT 345 10^3/uL (150-450); WHITE BLOOD CELL COUNT,WBC 10.6 10^3/uL (5.0-10.0)
[2024-12-07 07:02] LABS: ANION GAP 9.4 mEq/L (7-13); BILIRUBIN TOTAL 0.3 mg/dL (0.2-1.0); BUN/CREATININE RATIO 18.7 (No establ ref range); C-REACTIVE PROTEIN 1.13 ng/dL (<=0.50); CALCIUM 9.3 mg/dL (8.5-10.1); CREATININE 0.91 mg/dL (0.70-1.30); EST CRCL DRUG DOSING (CG) 80.45 mL/min; MAGNESIUM 2.2 mg/dL (1.8-2.4); POTASSIUM,K 4.4 mmol/L (3.5-5.1); PROTEIN TOTAL,TP 6.6 g/dL (6.4-8.2)
[2024-12-07 07:05] LABS: A/G RATIO 0.83
[2024-12-07] MEDS: Finasteride 5 MG Tab PO SCH (09:16)
[2024-12-07] MEDS: Tamsulosin 0.4 MG Cap.ER PO SCH (09:16)
[2024-12-07] MEDS: cefTRIAXone 2 GM Vial IVPUSH SCH (09:18)
[2024-12-07] MEDS: Azithromycin 500 MG in Sodium Chloride 0.9% 250 ML IV SCH (09:38)
[2024-12-07] MEDS: Aminophylline 500 MG in Sodium Chloride 0.9% 500 ML IV SCH (10:39)
[2024-12-07] MEDS: Nicotine 21 MG/24 Hr Patch TRDERM ONE (12:35)
[2024-12-07] MEDS: Apixaban 5 MG Tab PO SCH (21:24)
[2024-12-07] MEDS: Zolpidem 5 MG Tab PO SCH (21:24)
[2024-12-07] MEDS: Benzonatate 100 MG Cap PO PRN (21:26)
[2024-12-08 06:58] LABS: BASOPHILS PERCENT AUTO 0.3 % (0.0-1.0); HEMATOCRIT 41.5 % (40.0-54.0); HEMOGLOBIN 13.4 g/dL (14.0-18.0); LYMPHOCYTES PERCENT AUTO 5.4 % (20.5-50.1); MEAN CORPUSCULAR HEMOGLOBIN 28.3 pg (27.0-34.0); MEAN CORPUSCULAR HGB CONC 32.3 g/dL (33.0-35.0); MEAN CORPUSCULAR VOLUME 87.6 fL (80-100); MONOCYTES PERCENT AUTO 4.4 % (2-8); NEUTROPHILS PERCENT AUTO 89.9 % (42.2-75.2); PLATELET COUNT,PLT 361 10^3/uL (150-450); RED BLOOD CELL COUNT 4.74 10^6/uL (4.6-6.2); WHITE BLOOD CELL COUNT,WBC 11.7 10^3/uL (5.0-10.0)
[2024-12-08 07:04] LABS: ALANINE AMINOTRANSFERASE,ALT 8 U/L (16-63); ALKALINE PHOSPHATASE 46 U/L (46-116); ANION GAP 11.5 mEq/L (7-13); ASPARTATE AMNIOTRANSFERASE,AST 7 U/L (15-37); BILIRUBIN TOTAL 0.3 mg/dL (0.2-1.0); BLOOD UREA NITROGEN,BUN 19 mg/dL (7-18); BUN/CREATININE RATIO 17.1 (No establ ref range); CALCIUM 9.1 mg/dL (8.5-10.1); CARBON DIOXIDE,CO2 28 mmol/L (21-32); CHLORIDE,CL 101 mmol/L (98-107); CREATININE 1.11 mg/dL (0.70-1.30); EST CRCL DRUG DOSING (CG) 65.95 mL/min; GLUCOSE RANDOM 126 mg/dL (70-99); MAGNESIUM 2.3 mg/dL (1.8-2.4); POTASSIUM,K 4.5 mmol/L (3.5-5.1); PROTEIN TOTAL,TP 6.5 g/dL (6.4-8.2); SODIUM,NA 136 mmol/L (136-145)
[2024-12-08 07:07] LABS: A/G RATIO 0.86; C-REACTIVE PROTEIN < 0.50 ng/dL (<=0.50); ESTIMATED GFR 71 mL/min (>=60)
[2024-12-08] MEDS: Nicotine 21 MG/24 Hr Patch TRDERM SCH (08:59)
[2024-12-08] MEDS ORDERED: VARENICLINE TARTRATE PO SCH (09:00)
[2024-12-08] MEDS ORDERED: Midodrine 5 MG Tab PO PRN (11:34)
[2024-12-08] MEDS: Metoprolol Tartrate 50 MG Tab PO SCH (11:50)
[2024-12-08] MEDS: Dexamethasone 4 MG/ML SDV IVPUSH SCH (14:04)
[2024-12-08] MEDS ORDERED: Flumazenil 0.1 MG/ML 5 ML MDV IVPUSH PRN (20:05)
[2024-12-08] MEDS: Zolpidem 5 MG Tab PO SCH (21:45)
[2024-12-08] MEDS: LORazepam 2 MG/ML SDV IVPUSH ONE (21:45)
[2024-12-09 06:25] LABS: BASOPHILS PERCENT AUTO 0.5 % (0.0-1.0); HEMATOCRIT 42.6 % (40.0-54.0); HEMOGLOBIN 13.8 g/dL (14.0-18.0); LYMPHOCYTES PERCENT AUTO 9.1 % (20.5-50.1); MEAN CORPUSCULAR HEMOGLOBIN 28.3 pg (27.0-34.0); MEAN CORPUSCULAR HGB CONC 32.4 g/dL (33.0-35.0); MEAN CORPUSCULAR VOLUME 87.3 fL (80-100); MONOCYTES PERCENT AUTO 6.1 % (2-8); NEUTROPHILS PERCENT AUTO 84.3 % (42.2-75.2); PLATELET COUNT,PLT 354 10^3/uL (150-450); RED BLOOD CELL COUNT 4.88 10^6/uL (4.6-6.2); WHITE BLOOD CELL COUNT,WBC 8.2 10^3/uL (5.0-10.0)
[2024-12-09 06:47] LABS: ALANINE AMINOTRANSFERASE,ALT 11 U/L (16-63); ALBUMIN 3.1 g/dL (3.4-5.0); ALKALINE PHOSPHATASE 47 U/L (46-116); ANION GAP 6.3 mEq/L (7-13); ASPARTATE AMNIOTRANSFERASE,AST 7 U/L (15-37); BILIRUBIN TOTAL 0.4 mg/dL (0.2-1.0); BLOOD UREA NITROGEN,BUN 18 mg/dL (7-18); BUN/CREATININE RATIO 17.3 (No establ ref range); CALCIUM 9.1 mg/dL (8.5-10.1); CARBON DIOXIDE,CO2 26 mmol/L (21-32); CHLORIDE,CL 104 mmol/L (98-107); CREATININE 1.04 mg/dL (0.70-1.30); EST CRCL DRUG DOSING (CG) 70.39 mL/min; GLUCOSE RANDOM 119 mg/dL (70-99); MAGNESIUM 2.3 mg/dL (1.8-2.4); POTASSIUM,K 4.3 mmol/L (3.5-5.1); PROTEIN TOTAL,TP 6.6 g/dL (6.4-8.2); SODIUM,NA 132 mmol/L (136-145)
[2024-12-09 06:50] LABS: A/G RATIO 0.89; C-REACTIVE PROTEIN < 0.50 ng/dL (<=0.50); ESTIMATED GFR 77 mL/min (>=60)
[2024-12-09 13:07] VITALS: BP 138/67; PULSE 52
== END 2024-12-09 14:50 | disposition home or self-care (01) | DRG 871 ==
LOC: DL.ED 02:00 → DL.MS 03:33
PROVIDERS: ADMIT Internal Medicine; ATTEND Internal Medicine
DX: A41.9 Sepsis, unspecified organism (principal); J18.9 Pneumonia, unspecified organism; J90 Pleural effusion, not elsewhere classified; I10 Essential (primary) hypertension; J44.9 Chronic obstructive pulmonary disease, unspecified; F17.210 Nicotine dependence, cigarettes, uncomplicated; Z88.5 Allergy status to narcotic agent; J96.21 Acute and chronic respiratory failure with hypoxia; E87.1 Hypo-osmolality and hyponatremia; Z79.51 Long term (current) use of inhaled steroids; I50.32 Chronic diastolic (congestive) heart failure; J44.0 Chronic obstructive pulmonary disease with (acute) lower respiratory infection; J44.1 Chronic obstructive pulmonary disease with (acute) exacerbation; Z66 Do not resuscitate; H54.7 Unspecified visual loss; E78.00 Pure hypercholesterolemia, unspecified; N40.0 Benign prostatic hyperplasia without lower urinary tract symptoms; G43.909 Migraine, unspecified, not intractable, without status migrainosus; F41.9 Anxiety disorder, unspecified; K80.20 Calculus of gallbladder without cholecystitis without obstruction; K76.0 Fatty (change of) liver, not elsewhere classified; F32.A Depression, unspecified; J47.9 Bronchiectasis, uncomplicated; E83.52 Hypercalcemia; R00.1 Bradycardia, unspecified; E83.42 Hypomagnesemia; E88.09 Other disorders of plasma-protein metabolism, not elsewhere classified; F10.20 Alcohol dependence, uncomplicated; I11.0 Hypertensive heart disease with heart failure; K21.9 Gastro-esophageal reflux disease without esophagitis; I25.10 Atherosclerotic heart disease of native coronary artery without angina pectoris; Z79.899 Other long term (current) drug therapy; Z86.711 Personal history of pulmonary embolism; Z85.46 Personal history of malignant neoplasm of prostate; Z79.01 Long term (current) use of anticoagulants; Z72.0 Tobacco use; Z98.890 Other specified postprocedural states; Z88.8 Allergy status to other drugs, medicaments and biological substances
CPT/HCPCS: 36415; 71045; 80053; 83605; 83735; 83880; 84484; 85025; 87040 ×2; 87428; 93005; 93010; 96374; 99285 ×2; J1956; 80198; 82947; 86140; 94640; A9270-GY; J0280; J0456; J0696; J1100; J1815-GY; J2060; J2919; J3475; J7040; J7050

== ENCOUNTER 2025-02-25 23:20 | Emergency (ER) | payer MEDICARE ==
[2025-02-25] MEDS: Albuterol/Ipratropium 3.0-0.5 MG/3 ML Neb Soln NEB ONE (23:38)
[2025-02-25] MEDS: Sodium Chloride 0.9% 1,000 ML IV ONE (23:38)
[2025-02-25 23:50] LABS: HEMATOCRIT 43.6 % (40.0-54.0); HEMOGLOBIN 14.1 g/dL (14.0-18.0); MEAN CORPUSCULAR HEMOGLOBIN 28.9 pg (27.0-34.0); MEAN CORPUSCULAR HGB CONC 32.3 g/dL (33.0-35.0); MEAN CORPUSCULAR VOLUME 89.3 fL (80-100); PLATELET COUNT,PLT 200 10^3/uL (150-450); RED BLOOD CELL COUNT 4.88 10^6/uL (4.6-6.2); WHITE BLOOD CELL COUNT,WBC 8.4 10^3/uL (5.0-10.0)
[2025-02-25 23:54] LABS: BASOPHILS PERCENT AUTO 0.4 % (0.0-1.0); EOSINOPHILS PERCENT AUTO 1.7 % (1.0-3.0); MONOCYTES PERCENT AUTO 6.3 % (2-8); NEUTROPHILS PERCENT AUTO 65.6 % (42.2-75.2)
[2025-02-26 00:14] LABS: B-TYPE NATRIURETIC PEPTIDE,BNP 13 pg/ml (0-100)
[2025-02-26 00:16] LABS: LACTIC ACID 1.3 mmol/L (0.4-2.0)
[2025-02-26 00:17] LABS: ALANINE AMINOTRANSFERASE,ALT 14 U/L (16-63); ALBUMIN 3.2 g/dL (3.4-5.0); ALKALINE PHOSPHATASE 52 U/L (46-116); ASPARTATE AMNIOTRANSFERASE,AST 7 U/L (15-37); BILIRUBIN TOTAL 0.4 mg/dL (0.2-1.0); BLOOD UREA NITROGEN,BUN 16 mg/dL (7-18); BUN/CREATININE RATIO 17.8 (No establ ref range); CALCIUM 8.9 mg/dL (8.5-10.1); CARBON DIOXIDE,CO2 28 mmol/L (21-32); CHLORIDE,CL 104 mmol/L (98-107); GLUCOSE RANDOM 86 mg/dL (70-99); MAGNESIUM 2.2 mg/dL (1.8-2.4); PROTEIN TOTAL,TP 6.5 g/dL (6.4-8.2); SODIUM,NA 140 mmol/L (136-145)
[2025-02-26 00:18] LABS: A/G RATIO 0.97; ESTIMATED GFR 92 mL/min (>=60)
[2025-02-26 00:31] LABS: EOSINOPHILS PERCENT MAN 2 % (1-3); LYMPHOCYTES PERCENT MAN 20 % (20-50); MONOCYTES PERCENT MAN 5 % (2-8); SEG NEUTROPHILS PERCENT MAN 73 % (42-75)
[2025-02-26 00:44] VITALS: BP 123/74; PULSE 100
[2025-02-26] MEDS: Albuterol 0.083% 2.5 MG/3 ML Neb Soln NEB ONE (00:50)
== END 2025-02-26 01:26 | disposition home or self-care (01) ==
LOC: DL.ED 23:20
DX: J44.1 Chronic obstructive pulmonary disease with (acute) exacerbation (principal); I10 Essential (primary) hypertension; E78.00 Pure hypercholesterolemia, unspecified; Z88.5 Allergy status to narcotic agent; Z88.8 Allergy status to other drugs, medicaments and biological substances; Z79.51 Long term (current) use of inhaled steroids; Z79.899 Other long term (current) drug therapy
CPT/HCPCS: 36415; 71045; 80053; 83605; 83735; 83880; 84484; 85025; 87040; 93005; 99285; A9270; J7030

== ENCOUNTER 2025-04-12 18:14 | Emergency (ER) | payer MEDICARE ==
[~2025-04-12 18:14] MED LIST: Sodium Chloride 0.9% 10 ML Syringe FLUSH PRN
[2025-04-12 18:28] LABS: PLATELET COUNT,PLT 334 10^3/uL (150-450); RED BLOOD CELL COUNT 5.51 10^6/uL (4.6-6.2); WHITE BLOOD CELL COUNT,WBC 12.1 10^3/uL (5.0-10.0)
[2025-04-12 18:30] LABS: BASOPHILS PERCENT AUTO 0.7 % (0.0-1.0); EOSINOPHILS PERCENT AUTO 0.7 % (1.0-3.0); LYMPHOCYTES PERCENT AUTO 22.5 % (20.5-50.1); MONOCYTES PERCENT AUTO 6.3 % (2-8); NEUTROPHILS PERCENT AUTO 69.8 % (42.2-75.2)
[2025-04-12 18:55] LABS: A/G RATIO 0.78; ALANINE AMINOTRANSFERASE,ALT 12 U/L (16-63); ASPARTATE AMNIOTRANSFERASE,AST 15 U/L (15-37); BILIRUBIN TOTAL 0.5 mg/dL (0.2-1.0); BLOOD UREA NITROGEN,BUN 9 mg/dL (7-18); CARBON DIOXIDE,CO2 25 mmol/L (21-32); CHLORIDE,CL 105 mmol/L (98-107); CREATININE 0.78 mg/dL (0.70-1.30); ESTIMATED GFR 96 mL/min (>=60); GLUCOSE RANDOM 132 mg/dL (70-99); LYMPHOCYTES PERCENT MAN 24 % (20-50); POTASSIUM,K 3.8 mmol/L (3.5-5.1); PROTEIN TOTAL,TP 7.1 g/dL (6.4-8.2); SEG NEUTROPHILS PERCENT MAN 69 % (42-75); SODIUM,NA 143 mmol/L (136-145)
[2025-04-12 18:56] LABS: EOSINOPHILS PERCENT MAN 1 % (1-3); MONOCYTES PERCENT MAN 6 % (2-8)
[2025-04-12 18:59] LABS: LACTIC ACID 3.4 mmol/L (0.4-2.0)
[2025-04-12] MEDS: Ketorolac 30 MG/ML SDV IVPUSH ONE (19:15)
[2025-04-12] MEDS: Dexamethasone 4 MG/ML SDV IVPUSH ONE (19:15)
[2025-04-12 19:46] VITALS: BP 123/79; PULSE 112
== END 2025-04-12 20:15 | disposition home or self-care (01) ==
LOC: DL.ED 18:14
DX: J44.1 Chronic obstructive pulmonary disease with (acute) exacerbation (principal); F10.120 Alcohol abuse with intoxication, uncomplicated; E78.00 Pure hypercholesterolemia, unspecified; I10 Essential (primary) hypertension; I25.10 Atherosclerotic heart disease of native coronary artery without angina pectoris; Z88.5 Allergy status to narcotic agent; Z88.8 Allergy status to other drugs, medicaments and biological substances; Z79.51 Long term (current) use of inhaled steroids; Z79.899 Other long term (current) drug therapy; Y90.9 Presence of alcohol in blood, level not specified
CPT/HCPCS: 36415; 71045; 80053; 80307; 83605; 83735; 85025; 86140; 87040; 93005; 93010; 96374; 96375; 99284; 99285; A9270; J1100; J1885

== ENCOUNTER 2025-05-07 18:34 | Emergency (ER) | payer MEDICARE ==
[2025-05-07] MEDS ORDERED: Sodium Chloride 0.9% 10 ML Syringe FLUSH PRN (18:59)
[2025-05-07 19:12] LABS: BASOPHILS PERCENT AUTO 0.4 % (0.0-1.0); EOSINOPHILS PERCENT AUTO 1.0 % (1.0-3.0); LYMPHOCYTES PERCENT AUTO 26.3 % (20.5-50.1); MONOCYTES PERCENT AUTO 6.1 % (2-8); NEUTROPHILS PERCENT AUTO 66.2 % (42.2-75.2); PLATELET COUNT,PLT 344 10^3/uL (150-450); RED BLOOD CELL COUNT 5.22 10^6/uL (4.6-6.2); WHITE BLOOD CELL COUNT,WBC 9.3 10^3/uL (5.0-10.0)
[2025-05-07 19:32] LABS: LACTIC ACID 3.0 mmol/L (0.4-2.0)
[2025-05-07 19:33] LABS: B-TYPE NATRIURETIC PEPTIDE,BNP 37 pg/ml (0-100)
[2025-05-07 19:36] LABS: A/G RATIO 0.9; ALANINE AMINOTRANSFERASE,ALT 18 U/L (16-63); ASPARTATE AMNIOTRANSFERASE,AST 17 U/L (15-37); BILIRUBIN TOTAL 0.2 mg/dL (0.2-1.0); BLOOD UREA NITROGEN,BUN 13 mg/dL (7-18); CARBON DIOXIDE,CO2 24 mmol/L (21-32); CHLORIDE,CL 106 mmol/L (98-107); CREATININE 0.68 mg/dL (0.70-1.30); EST CRCL DRUG DOSING (CG) 107.66 mL/min; ESTIMATED GFR 100 mL/min (>=60); GLUCOSE RANDOM 151 mg/dL (70-99); POTASSIUM,K 3.6 mmol/L (3.5-5.1); PROTEIN TOTAL,TP 7.0 g/dL (6.4-8.2); SODIUM,NA 143 mmol/L (136-145)
[2025-05-07 19:37] LABS: ETHANOL BLOOD MEDICAL 320 mg/dL (0)
[2025-05-07 19:49] LABS: INR 0.9 (0.9-1.2)
[2025-05-07 20:07] LABS: PTT,PARTIAL THROMBOPLSTIN TIME 24.9 SEC (22.0-34.0)
[2025-05-07 22:13] VITALS: BP 137/81; PULSE 106
== END 2025-05-07 21:29 | disposition home or self-care (01) ==
LOC: DL.ED 18:34
DX: J44.1 Chronic obstructive pulmonary disease with (acute) exacerbation (principal); F10.920 Alcohol use, unspecified with intoxication, uncomplicated; R74.02 Elevation of levels of lactic acid dehydrogenase [LDH]; I10 Essential (primary) hypertension; E78.00 Pure hypercholesterolemia, unspecified; F17.200 Nicotine dependence, unspecified, uncomplicated; Z88.5 Allergy status to narcotic agent; Z88.8 Allergy status to other drugs, medicaments and biological substances; Z79.51 Long term (current) use of inhaled steroids; Z79.01 Long term (current) use of anticoagulants; Z79.899 Other long term (current) drug therapy; Z76.5 Malingerer [conscious simulation]; Y90.8 Blood alcohol level of 240 mg/100 ml or more
CPT/HCPCS: 36415; 71045; 80053; 80307; 83605; 83735; 83880; 84484; 85025; 85610; 85730; 86140; 87040; 93005; 93010; 96360; 96361; 99284; 99285; A9270; J7030

== ENCOUNTER 2025-05-08 15:28 | Emergency (ER) | payer MEDICARE ==
[2025-05-08] MEDS: methylPREDNISolone Sodium Succinate 125 MG/2 ML SDV IVPUSH ONE (15:52)
[2025-05-08 18:30] VITALS: BP 106/69; PULSE 108
== END 2025-05-08 16:45 | disposition home or self-care (01) ==
LOC: DL.ED 15:28
DX: J44.1 Chronic obstructive pulmonary disease with (acute) exacerbation (principal); E78.00 Pure hypercholesterolemia, unspecified; I10 Essential (primary) hypertension; J44.9 Chronic obstructive pulmonary disease, unspecified; Z88.5 Allergy status to narcotic agent; Z79.51 Long term (current) use of inhaled steroids; Z79.899 Other long term (current) drug therapy; Z79.01 Long term (current) use of anticoagulants
CPT/HCPCS: 96374; 99285; A9270; J2919; 99284